=== PATIENT | male | born 1970 | race Caucasian/White ===

== ENCOUNTER 2017-12-23 09:47 | Outpatient (CLI) | payer OTHER, SELFPAY ==
[2017-12-23 11:15] LABS: Anion Gap 7.4 mmol/L (3-11); BUN 21 mg/dL (7-18); CO2 28.6 mmol/L (21.0-32.0); CREATININE 1.41 mg/dL (0.70-1.30); Calcium 8.8 mg/dL (8.5-10.1); Chloride 103 mmol/L (98-107); Cholesterol 202 mg/dL (50-200); Estimated GFR 54.11 (mL/min/1.73m2); Glucose 111 mg/dL (70-100); HDL Cholesterol 33 mg/dL (40-60); LDL CHOLESTEROL 139 mg/dL (<100); Potassium 4.2 mmol/L (3.5-5.1); Sodium 139 mmol/L (136-145); TSH (W/Ref FT4) 0.45 uIU/mL (0.358-3.74); Triglyceride 172 mg/dL (30-150)
[2017-12-23 11:32] LABS: Uric Acid 6.6 mg/dL (3.5-7.2)
== END 2017-12-23 09:48 ==
PROVIDERS: PCP Nurse Practitioner Family; Visit Provider Nurse Practitioner Family
DX: E78.5 Hyperlipidemia, unspecified (principal); E03.9 Hypothyroidism, unspecified; M10.9 Gout, unspecified; N18.3 Chronic kidney disease, stage 3 (moderate)
CPT/HCPCS: 36415; 80048; 80061; 83721; 84443; 84550

== ENCOUNTER 2018-01-15 12:14 | Outpatient (CLI) | payer OTHER, SELFPAY ==
[2018-01-15 13:49] LABS: Uric Acid 5.6 mg/dL (3.5-7.2)
== END 2018-01-15 12:15 ==
PROVIDERS: PCP Nurse Practitioner Family; Visit Provider Nurse Practitioner Family
DX: M10.9 Gout, unspecified (principal)
CPT/HCPCS: 36415; 84550

== ENCOUNTER 2018-09-20 12:33 | Outpatient (CLI) | payer OTHER, SELFPAY ==
[2018-09-20 13:03] LABS: HCT 47.4 % (40.0-50.0); HGB 16.1 g/dL (13.5-17.5)
[2018-09-20 14:08] LABS: TSH (W/Ref FT4) 0.63 uIU/mL (0.358-3.74)
[2018-09-21 16:45] LABS: PSA, Ultrasensitive 0.53 ng/mL (<= 2.5)
[2018-09-24 16:52] LABS: Testosterone, Free 21.1 ng/dL (4.26-16.4); Testosterone, Total 479 ng/dL (240-950)
== END 2018-09-20 12:53 ==
PROVIDERS: PCP Nurse Practitioner Family; Visit Provider Internal Medicine Endocrinology, Diabetes & Metabolism
DX: E29.1 Testicular hypofunction (principal); E06.5 Other chronic thyroiditis
CPT/HCPCS: 36415; 84153; 84402; 84403; 84443; 85014; 85018

== ENCOUNTER 2018-12-29 16:16 | Outpatient (REF) | payer OTHER, SELFPAY | END 2018-12-29 16:36 | LOC: LBN 16:16 | PROVIDERS: PCP Nurse Practitioner Family; Visit Provider Nurse Practitioner Family | DX: J02.9 Acute pharyngitis, unspecified (principal) | CPT/HCPCS: 87070 ==

== ENCOUNTER 2019-09-30 02:37 | Outpatient (CLI) | payer OTHER, SELFPAY ==
[2019-09-30 10:03] LABS: HCT 50.1 % (40.0-50.0); HGB 16.8 g/dL (13.5-17.5); Mean Corp. HGB Concentration 33.5 g/dL (32.0-36.0); Mean Corpuscular Hemoglobin 30.1 pg (27.0-33.0); Mean Corpuscular Volume 89.6 fL (80-95); Mean Platelet Volume 10.7 fL (8.0-11.0); Platelet Count 205 x1000/uL (130-400); RBC 5.59 m/cumm (4.50-6.00); RBC Distribution Width 14.1 % (11.8-14.1); White Blood Cell Count 8.52 k/cumm (4.4-10.8)
[2019-09-30 11:43] LABS: ALT 60 U/L (16-63); AST 29 U/L (15-37); Albumin 3.9 g/dL (3.4-5.0); Alkaline Phosphatase 89 U/L (46-116); Bilirubin, Direct 0.11 mg/dL (0.00-0.20); Bilirubin, Total 0.5 mg/dL (0.2-1.0); TSH (W/Ref FT4) 1.43 uIU/mL (0.36-3.74); Total Protein 6.9 g/dL (6.4-8.2)
[2019-10-03 10:53] LABS: PSA, Screening 0.4 ng/mL (0.0-2.5)
[2019-10-06 12:25] LABS: Testosterone, Total 731 ng/dL (240-950)
== END 2019-09-30 02:57 ==
PROVIDERS: PCP Nurse Practitioner Adult Health; Visit Provider Internal Medicine Endocrinology, Diabetes & Metabolism
DX: E29.1 Testicular hypofunction (principal); E03.9 Hypothyroidism, unspecified; E06.3 Autoimmune thyroiditis
CPT/HCPCS: 36415; 80076; 84153; 84402; 84403; 85027; 84443

== ENCOUNTER 2021-08-21 01:40 | Outpatient (CLI) | payer OTHER, SELFPAY ==
--- NOTE | 2021-08-21 07:45 | DI.RAD_ITS ---
Exam(s) XR ELBOW LT COMPLETE EXAM: XR ELBOW LT COMPLETE CLINICAL HISTORY: pain to ulna radius just distal to elbow,? BONY DEFORMITY OR LESION. TECHNIQUE: 2D digital imaging was performed. COMPARISON: No exams were available for comparison FINDINGS: 3 views There is no evidence of fracture or elbow joint effusion. There is no swelling of the olecranon burs a. Radial head and capitellum appear unremarkable. Bony excrescence noted at the level of the later al epicondyle. Correlation with clinical findings of possible epicondylitis recommended. IMPRESSION: DATA REPOSITORY: RADIATION DOSE DELIVERED:
== END 2021-08-21 02:00 ==
PROVIDERS: PCP Nurse Practitioner Adult Health; Visit Provider Nurse Practitioner Adult Health
DX: M79.632 Pain in left forearm (principal); M25.522 Pain in left elbow
CPT/HCPCS: 73080

== ENCOUNTER 2022-06-20 12:03 | Outpatient (CLI) | payer OTHER, SELFPAY ==
--- NOTE | 2022-06-20 11:30 | DI.RAD_ITS ---
Exam(s) XR CHEST 2V PA LATERAL EXAM: XR CHEST 2V PA LATERAL CLINICAL HISTORY: COUGH, R05.9, r/o PNA. TECHNIQUE: 2D digital imaging was performed. COMPARISON: No exams were available for comparison FINDINGS: 2 views: Heart size is normal. The mediastinum is not widened. There is a benign calcified granuloma in the right upper lobe. No confluent infiltrates nor pleural effusions. No pneumothorax. IMPRESSION: No acute pulmonary findings. DATA REPOSITORY: RADIATION DOSE DELIVERED:
--- OUTSIDE RECORDS SUMMARY | 2022-06-20 12:12 | XMS_ITS | Continuity of Care Document ---
:1970 Author Organization [facility] Address [address] [place] [address] Care Team Providers Name Role Phone Kitty Smith Primary Care Physician Encounter [facility] Date(s): 06/14/22 - 06/14/[address] [address] Discharge Disposition: Home or Self Care Attending Physician: Kitty Smith APRN Admitting Physician: Kitty Smith APRN Referring Physician: REAGAN FULTON Allergies, Adverse Reactions, Alerts No Known Medication Allergies Substance Reaction Severity Status clarithromycin Unknown Active Medications AAA - Misc Prescription 12 EA, 0 Refill(s) Start Date: 12/11/21 Status: Orderedallopurinol 300 mg oral tablet 90 tab, 0 Refill(s) Start Date: 12/11/21 Status: Orderedescitalopram 20 mg oral tablet 90 tab, 0 Refill(s) Start Date: 12/11/21 Status: Orderedlisinopril 20 mg oral tablet 90 tab, 0 Refill(s) Start Date: 12/11/21 Status: OrderedMisc Prescription Lexi-D 24 hour 1 daily, 0 Refill(s) Start Date: 12/09/21 Status: OrderedSynthroid 175 mcg (0.175 mg) oral tablet 90 tab, 0 Refill(s) Start Date: 12/11/21 Status: OrderedTestosterone Cypionate 200 mg/mL intramuscular solution 6 mL, 0 Refill(s) Start Date: 12/11/21 Status: OrderedVitamin D3 2000 intl units oral capsule See Instructions, Take by oral route Start Date: 12/09/21 Status: Ordered Problem List Condition Confirmation Course Effective Dates Status Health I nformant Status Anxiety disorder Confirmed 07/06/20 Active Chronic kidney Confirmed 07/06/20 Active disease stage 3 Essential Confirmed 07/06/20 Active hypertension Hyperlipidemia Confirmed 07/06/20 Active Impaired fasting Confirmed 07/06/20 Active glycemia Obstructive sleep Confirmed 07/04/20 Active apnea syndrome Pain in left arm Confirmed 07/06/20 Active Paresthesia Confirmed 07/06/20 Active Triggering of digit Confirmed 07/06/20 Active Results Laboratory List Name Date Comprehensive Metabolic Panel 06/14/22 Hemoglobin A1c 06/14/22 Lipid Panel 06/14/22 Uric Acid 06/14/22 Most recent to oldest [Reference Range]: 1 BUN [7-18 mg/dL] 15 mg/dL (06/14/22 11:20 AM) Cholesterol Total [50-200 mg/dL] 200 mg/dL (06/14/22 11:20 AM) LDL [0-130 mg/dL] 91 mg/dL (06/14/22 11:20 AM) Glucose Level [74-106 mg/dL] 121 mg/dL *HI* (06/14/22 11:20 AM) Potassium Level [3.5-5.1 mmol/L] 4.4 mmol/L (06/14/22 11:20 AM) HDL [40-60 mg/dL] 34 mg/dL *LOW* (06/14/22 11:20 AM) AST [15-37 unit/L] 29 unit/L (06/14/22 11:20 AM) ALT [16-63 unit/L] 57 unit/L (06/14/22 11:20 AM) Sodium Level [136-145 mmol/L] 137 mmol/L (06/14/22 11:20 AM) Triglycerides [0-150 mg/dL] 373 mg/dL *HI* (06/14/22 11:20 AM) Calcium Level [8.5-10.1 mg/dL] 9.3 mg/dL (06/14/22 11:20 AM) Albumin Level [3.4-5.0 g/dL] 4.0 g/dL (06/14/22 11:20 AM) Protein Total [6.4-8.2 g/dL] 7.4 g/dL (06/14/22 11:20 AM) Bilirubin Total [0.2-1.0 mg/dL] 1.0 mg/dL (06/14/22 11:20 AM) Uric Acid [3.5-7.2 mg/dL] 7.3 mg/dL *HI* (06/14/22 11:20 AM) Alk Phos [46-146 unit/L] 75 unit/L (06/14/22 11:20 AM) CO2 [21-32 mmol/L] 31 mmol/L (06/14/22 11:20 AM) eGFR Non-AA [>=60] 58 *LOW* (06/14/22 11:20 AM) eGFR AA [>=60] 58 *LOW* (06/14/22 11:20 AM) Hemoglobin A1c [4.0-6.0 %] 5.6 % (06/14/22 11:20 AM) Chloride Level [98-107 mmol/L] 99 mmol/L (06/14/22 11:20 AM) Creatinine Level [0.70-1.30 mg/dL] 1.46 mg/dL *HI* (06/14/22 11:20 AM) Social History Social History Type Response Tobacco Never tobacco user Tobacco U se:. Sex Male Patient Care team information PersonnelName: Kitty Smith APRN Address: Address: [facility] [address] [place] [id number] [place] [address]
== END 2022-06-20 12:23 ==
LOC: DI 12:11
PROVIDERS: PCP Nurse Practitioner Adult Health; Visit Provider Nurse Practitioner Family
DX: R05.9 Cough, unspecified (principal)
CPT/HCPCS: 71046

== ENCOUNTER 2023-01-12 11:26 | Outpatient (CLI) | payer OTHER, SELFPAY ==
[2023-01-12 11:32] LABS: ESR 4 mm/hr (0-20)
[2023-01-12 11:54] LABS: Hemoglobin A1C 5.6 % (<5.7)
[2023-01-12 12:08] LABS: Anion Gap 6.2 mmol/L (3-11); BUN 11 mg/dL (7-18); CO2 29.8 mmol/L (21.0-32.0); CREATININE 1.4 mg/dL (0.70-1.30); Calcium 9.2 mg/dL (8.5-10.1); Chloride 102 mmol/L (98-107); Estimated GFR 60.85 (mL/min/1.73m2); Folate 8.4 ng/mL (8.6-20.0); Glucose 136 mg/dL (74-106); Potassium 3.8 mmol/L (3.5-5.1); Sodium 138 mmol/L (136-145); TSH (W/Ref FT4) 3.45 uIU/mL (0.36-3.74); Vitamin B12 358 pg/mL (193-986)
[2023-01-13 13:52] LABS: Albumin 62.8 % (55.8-66.1); Albumin g/dL 4.3 g/dL (3.6-5.2); Total Protein 6.9 g/dL (6.3-8.2)
[2023-01-13 14:28] LABS: ANA Interpretation Negative (Negative)
== END 2023-01-12 11:27 | disposition home or self-care (01) ==
LOC: LBO 11:26
PROVIDERS: PCP Nurse Practitioner Adult Health; Visit Provider Nurse Practitioner Adult Health
DX: F41.9 Anxiety disorder, unspecified (principal); G62.9 Polyneuropathy, unspecified
CPT/HCPCS: 36415; 80048; 85652; 82607; 82746; 83036; 84165; 84443; 86038

== ENCOUNTER 2023-08-09 20:11 | Emergency (ER) | payer OTHER, SELFPAY ==
[2023-08-09] VITALS (16 sets, daily range): BP systolic 158–180; BP diastolic 65–113; PULSE 109–118; RESP 17–32; TEMP 37.3–38.2; O2SAT 93–97
--- NOTE | 2023-08-09 20:15 | RT.EKG_ITS ---
APPROVED REPORT Exam: Resting ECG Reason for Exam: chest pain Patient Location: E HR:115 bpm ECG Measurements Heart Rate 115 AXIS SD 136 P 59 QRSd 86 QRS -67 QT 289 T 73 QTc 399 Conclusion Sinus tachycardia...rate> 99 Left anterior fascicular block...axis(240,-40), init forces inf Narrow complex sinus tachycardia at a rate of 115. Left axis deviation. Intervals within normal vasquez its. T wave flattening in aVL. No prior for comparison. No acute injury pattern.
[2023-08-09 20:57] LABS: Abs Immature Grans 0.03 10^3/uL (0.0-0.06); Absolute Basophil Count 0.03 10^3/uL (0.0-0.2); Absolute Eosinophil Count 0.09 10^3/uL (0.0-0.7); Absolute Lymphocyte Count 0.54 10^3/uL (1.2-3.4); Absolute Monocyte Count 1.02 10^3/uL (0.1-0.8); Absolute Neutrophil Count 3.61 10^3/uL (1.2-6.7); Basophils % 0.6; Eosinophils % 1.7; HCT 47.1 % (40.0-50.0); HGB 15.8 g/dL (13.5-17.5); Immature Grans % 0.6; Lymphocytes % 10.2; MCH 30.3 pg (27.0-33.0); MCHC 33.5 % (32.0-36.0); MCV 90 fL (80-95); Monocytes % 19.2; Neutrophils % 67.7; Platelet Count 137 10^3/uL (130-400); RBC 5.21 10^6/uL (4.36-5.78); RDW 13.4 % (11.8-14.1); RDW-SD 44.8 fL; WBC 5.32 10^3/uL (4.4-10.8)
--- NOTE | 2023-08-09 21:00 | DI.RAD_ITS ---
Exam(s) XR CHEST 2V PA LATERAL EXAM: XR CHEST 2V PA LATERAL CLINICAL HISTORY: fever, cough TECHNIQUE: 2D digital imaging was performed. Two views. COMPARISON: CR XR CHEST 2V PA LATERAL from 06/20/2022 FINDINGS: Leads overlie the chest. Poor inspiratory effort on the lateral view. HEART: Normal size. Aorta: Not dilated. PULMONARY VASCULATURE: Normal. LUNGS: Clear. PLEURAL SPACE: No pleural effusion or pneumothorax. BONE:Unremarkable for age. Soft tissues: Unremarkable. IMPRESSION: No acute abnormality. DATA REPOSITORY: RADIATION DOSE DELIVERED:
--- NOTE | 2023-08-09 21:02 | W.ED.GENAD ---
Discharge Plan Disposition Patient Disposition: Home Condition: Stable Discharge Details Clinical Impression: Influenza A Primary Care Provider: Kitty Cordova ED Provider: Melania Garcia Home Meds and New Rx's Prescriptions: New prednisone 20 mg tablet 40 mg PO ONCE Qty: 9 0RF Continued cholecalciferol (vitamin D3) 125 mcg (5,000 unit) capsule 125 mcg PO .During winter months mecobalamin (vitamin B12) 1,000 mcg tablet,chewable 2,000 mcg PO DAILY testosterone cypionate 100 MG/1 ML oil 80 mg IM q wk Rx Instructions: [facility], Andrologist rx levothyroxine 175 MCG tablet 175 mcg PO DAILY Qty: 90 Rx Instructions: [facility] Administer in the morning on an empty stomach, at least 30-60 minutes before food. lisinopril 20 mg tablet See Rx Instructions .ROUTE .COMPLEX Qty: 90 3RF Dose Instruction: TAKE 1 TABLET DAILY FOR HIGH BLOOD PRESSURE Rx Instructions: TAKE 1 TABLET DAILY FOR HIGH BLOOD PRESSURE allopurinol 300 mg tablet See Rx Instructions .ROUTE .COMPLEX Qty: 90 3RF Dose Instruction: TAKE 1 TABLET DAILY Rx Instructions: TAKE 1 TABLET DAILY folic acid 1 mg tablet 1 mg PO DAILY Qty: 90 3RF escitalopram oxalate 20 mg tablet See Rx Instructions .ROUTE .COMPLEX Qty: 90 3RF Dose Instruction: TAKE 1 TABLET DAILY Rx Instructions: TAKE 1 TABLET DAILY Discharge Instructions Instructions: Influenza (DC) Additional Instructions: Supportive care, Tylenol 650 to 1 g every 6 hours Be cautious with taking Aleve as you are on lisinopril, you may take Aleve 1-2 times a day but do not exceed 3 days as it can affect your kidneys Use your inhaler, 2 puffs every 4-6 hours At least eight 8 ounce glasses of water daily Please do not return to work until you are feeling improved and fever free for at least 24 hours Take the prednisone as prescribed, you will need your next dose tomorrow, this will help with cough and breathing Please return earlier should you have new or worsening complaints Stand Alone Forms: Work Release Referrals: Kitty Cordova, AIDS NURSE [Primary Care Provider] - Discharge Data Discharge Date/Time-TO BE ENTERED AT DEPARTURE: 08/09/23 22:23 HPI General Date/Time Provider Initiated Documentation: 08/09/23 20:28. HPI Narrative: This 52-year-old male with history of peripheral neuropathy, CKD, hypothyroidism, gout presents with report of shortness of breath, fever, myalgias, with subsequent episode of syncope today. Patient states he was coughing after standing up and had a syncopal event. He states he had pain secondary to coughing. He has been sick for approximately 3 days. Numerous sick contacts at work reportedly. Had a brief several second loss of consciousness, denies any associated palpitations or shortness of breath at the time. Denies any history of tobacco use. Denies any calf pain or swelling, recent flights, surgeries, long drives. Denies any neck pain or current headache. Denies history of coagulopathy. Denies tobacco use, or history of hyperlipidemia or hypertension per patient. Related Data Home Medications Medication Instructions Recorded Confirmed testosterone cypionate 100 mg/mL 80 mg IM q wk 08/27/12 08/09/23 intramuscular oil levothyroxine 175 mcg tablet 175 mcg PO DAILY #90 tab-caps 12/31/17 08/09/23 cholecalciferol (vitamin D3) 125 125 mcg PO .During winter months 04/17/21 08/09/23 mcg (5,000 unit) capsule allopurinol 300 mg tablet See Rx Instructions .Route 06/16/22 08/09/23 .COMPLEX #90 tabs lisinopril 20 mg tablet See Rx Instructions .Route 06/16/22 08/09/23 .COMPLEX #90 tabs folic acid 1 mg tablet 1 mg PO DAILY #90 tabs 02/04/23 08/09/23 mecobalamin (vitamin B12) 1,000 2,000 mcg PO DAILY 04/24/23 08/09/23 mcg chewable tablet escitalopram oxalate 20 mg tablet See Rx Instructions .Route 04/27/23 08/09/23 .COMPLEX #90 tabs prednisone 20 mg tablet 40 mg (2 x 20 mg) PO ONCE #9 tabs 08/09/23 Previous Rx's Medication Instructions Recorded allopurinol 300 mg tablet See Rx Instructions .Route 06/16/22 .COMPLEX #90 tabs lisinopril 20 mg tablet See Rx Instructions .Route 06/16/22 .COMPLEX #90 tabs folic acid 1 mg tablet 1 mg PO DAILY #90 tabs 02/04/23 escitalopram oxalate 20 mg tablet See Rx Instructions .Route 04/27/23 .COMPLEX #90 tabs prednisone 20 mg tablet 40 mg (2 x 20 mg) PO ONCE #9 tabs 08/09/23 Allergies Allergy/AdvReac Type Severity Reaction Status Date / Time clarithromycin [From Biaxin] AdvReac Unknown Verified 04/24/23 15:27 General Stated Complaint: [id number] ROSSANA: 3 Course Vital Signs Vital signs: Vital Signs Temperature 38.2 C H 08/09/23 20:19 Pulse 111 H 08/09/23 20:19 Respiratory Rate 24 08/09/23 20:19 Blood Pressure 166/95 H 08/09/23 20:19 Pulse Oximetry 95 08/09/23 20:19 Temperature 38.2 C H 08/09/23 20:19 Temperature Source Temporal Artery Scan 08/09/23 20:19 Pulse 111 H 08/09/23 20:19 Respiratory Rate 24 08/09/23 20:19 Respiratory Effort Short of Breath 08/09/23 20:33 Blood Pressure 166/95 H 08/09/23 20:19 Blood Pressure Position Sitting 08/09/23 20:19 Pulse Oximetry 95 08/09/23 20:19 Oxygen Delivery Method Room Air 08/09/23 20:19 Oxygen Flow Rate 0 08/09/23 20:19 Pain Level 7 08/09/23 20:19 Comment w/coughing 08/09/23 20:19 Lab/Test Results Lab/Test Results: Laboratory Tests Range/Units 08/09/23 08/09/23 20:46 20:48 WBC (4.4-10.8) 10^3/uL 5.32 RBC (4.36-5.78) 10^6/uL 5.21 Hgb (13.5-17.5) g/dL 15.8 Hct (40.0-50.0) % 47.1 MCV (80-95) fL 90 MCH (27.0-33.0) pg 30.3 MCHC (32.0-36.0) % 33.5 RDW (11.8-14.1) % 13.4 Plt Count (130-400) 10^3/uL 137 MPV (8.0-11.0) fL 10.0 Immature Gran % 0.6 Neutrophils % 67.7 Lymphocytes % 10.2 Monocytes % 19.2 Eosinophils % 1.7 Basophils % 0.6 Nucleated RBC % (0.0-0.3) % 0.0 Absolute Neutrophils (1.2-6.7) 10^3/uL 3.61 Absolute Lymphocytes (1.2-3.4) 10^3/uL 0.54 L Absolute Monocytes (0.1-0.8) 10^3/uL 1.02 H Absolute Eosinophils (0.0-0.7) 10^3/uL 0.09 Absolute Basophils (0.0-0.2) 10^3/uL 0.03 Magnesium Cancelled Medical Decision Making This 52-year-old male presents with report of chest pain with coughing, mild shortness of breath, and syncopal event today EKG without significant dysrhythmia, sinus tachycardia noted, no hypoxia or respiratory distress, feels marked improvement after albuterol administration, steroids supplied her bronchospastic cough No cervical spine tenderness, GCS 15, pupils equal round reactive to light and accommodation, no Swelling or tenderness appreciated, no abdominal tenderness, rebound or guarding Diagnostic labs do not show significant acute abnormality, influenza A positive, likely the etiology of patient's complaints Troponin was negative Low suspicion for cardiac etiology of patient's complaints, he has reproducible generalized chest wall tenderness that started after copious amounts of coughing, started on prednisone, given inhaler for home, febrile upon arrival likely the cause of patient's tachycardia, clinically low suspicion for PE Feels comfortable discharge home, work note supplied As patient is 72 hours post onset of symptoms, does not meet criteria for Tamiflu administration Return precautions reviewed and patient expressed understanding Quality:SDOH Health Related Social Needs: No Data to Display PFSH All Active Problems (Updated 08/09/23 @ 22:48 by KEVYN Brandon) Influenza A (Acute) Folate deficiency (Acute ~01/2023) Peripheral neuropathy (Chronic ~10/2022) NCS at [facility] 10/2022 Idiopathic progressive neuropathy b/l feet Polyneuropathy, unspecified Chronic kidney disease (CKD), stage III (moderate) (Chronic) Most likely 2/2 congenital solitary kidney and HTN (and gout?); NL UA, microalbumin, and renal US Acquired hypothyroidism (Chronic 05/18/07) DX AT TIME OF HYPOGONADISM [place]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 Endocrinology [facility] [place] [place] Nazia Starkey manages IFG (impaired fasting glucose) (Chronic 11/10/16) 5.5% A1C 2018 Obstructive sleep apnea syndrome (Chronic 12/09/11) CPAP; [facility] 08/2020 [facility]- repeat home sleep study done to requalify for treatment. moderate geremias associated with significant nocturnal hypoxemia. 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 Hypertensive disorder, systemic arterial Atherosclerosis of coronary artery Family history of stroke Alcoholism Hyperlipidemia Sister Disorder of thyroid gland Brother Hypertensive disorder, systemic arterial Gout Alcoholism Depression Hyperlipidemia Brother Hypertensive disorder, systemic arterial Hyperlipidemia Grandmother Diabetes Other History of kidney disease Hypothyroidism Social History Smoking/Tobacco Use Status: Never Smoking risk assessment performed?: Yes Alcohol Intake: current Alcohol Intake frequency: holidays/special occasions only Details: Pt declined to answer. Drug use: Never Substance use type: does not use Details: Pt declined to answer. 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 Pets and animals: Yes Pets and animals: dog(s) Sexually active: Yes Do you think of yourself as: decline to answer Current gender identity: male and decline to answer What is your relationship status?: refused to answer How often do you talk on the phone with friends or family?: decline to answer How often do you get together with friends or relatives?: decline to answer How often do you attend mandaen or hindu services?: decline to answer Do you belong to any clubs or organized social groups?: decline to answer Panel score (0-1 are the most socially isolated patients): 0 What type of physical activity do you participate in: decline to answer Duration: decline to answer Frequency: decline to answer Vandana/Druze: Evangelical Special vandana needs: Yes (does not want meds,vaccines,etc that contain aborted babies) Details: pt aware this is not something pcpoffice/healthcare can monitor Seatbelt use: always Drive intox or ride w/intox clamp truck driver: No Water heater temp set <120 deg: Yes Working smoke detector in home: Yes Fire extinguisher in home: Yes Carbon monox detector in home: Yes Do you feel safe at home: Yes Do you feel safe in your relationship?: Yes Additional Social history: pt states for his own self, he would like to have it written under special needs that he does not want any medicines, vaccines etc that contain aborted babies. he is aware this is not something the pcp office/healthcare can monitor/screen for him or be responsible for. He is aware he will need to do his own research and agrees. He just asks that this be noted under the special vandana needs for his own comfort. PCP is aware and aware he asked for this to be noted under social history/special vandana needs PAWSS Have you Been Recently Intoxicated or Drunk Within the Last 30 days?: No Have you Ever Experienced Previous Episodes of Alcohol Withdrawal?: No Have you ever Experienced Withdrawal Seizures?: No Have you ever Experienced Delirium Tremens(DT)s?: No Have you ever undergone Alcohol Rehabilitation Treatment (i.e, inpt ot outpatient treatment programs)?: No Have you ever Experienced Blackouts?: No Have you ever Combined Alcohol with other Downers within the last 90 days?: No Have you ever Combined Alcohol with any other Substance of Abuse during the last 90 days?: No Positive Blood Alcohol level on Presentation? [PCS.BAL]: No Evidence of Increased Autonomic Activity (i.e. HR>120, tremor, sweating, agitation, nausea)?: No Result: 0
[2023-08-09 21:13] LABS: ALT 52 U/L (16-63); AST 36 U/L (15-37); Albumin 3.8 g/dL (3.4-5.0); Alkaline Phosphatase 74 U/L (46-116); BUN 15 mg/dL (7-18); Bilirubin, Total 0.5 mg/dL (0.2-1.0); CREATININE 1.6 mg/dL (0.70-1.30); Calcium 8.9 mg/dL (8.5-10.1); Chloride 100 mmol/L (98-107); Estimated GFR 51.84 (mL/min/1.73m2); Glucose 131 mg/dL (74-106); Potassium 4.1 mmol/L (3.5-5.1); Sodium 139 mmol/L (136-145); Total Protein 6.9 g/dL (6.4-8.2); Troponin I < 50 ng/L (< or =60)
[2023-08-09 21:15] LABS: COVID-19 PCR Negative (Negative); Influenza A PCR Positive (Negative); Influenza B PCR Negative (Negative); RSV PCR Negative (Negative)
[2023-08-09 21:17] LABS: Source Nasopharynx
[2023-08-09] MEDS: predniSONE 20 MG TAB 40 MG PO (21:32)
[2023-08-09] MEDS: Albuterol HFA 8 GM 60 PUFF INH IH (21:32)
[2023-08-09] MEDS: Normal Saline 1,000 ML 1000 ML IV (21:32)
[2023-08-09] MEDS: ACETAMINOPHEN 1,000 MG/100 ML BTL 400 MG IVPB (21:38)
[2023-08-09 22:10] LABS: Bilirubin Negative (Negative); Blood Small (Negative); Clarity Clear (Clear); Glucose Negative (Negative); Ketones Negative (Negative); Leukocyte Esterase Negative (Negative); Nitrite Negative (Negative); Urobilinogen 0.2 mg/dL (Up to 0.2); pH 8.5 (5-8)
[2023-08-09 22:21] LABS: Bacteria Negative HPF (Negative); C & S Indicated? No; Casts Negative LPF (Negative); Crystals Negative HPF (Negative); Epithelial Cells Rare HPF (Negative); Mucus Negative (Negative); WBC 0-2 HPF (0-5)
--- NOTE | 2023-08-09 22:44 | DI.VRAD_ITS ---
PROCEDURE INFORMATION: Exam: XR Chest Exam date and time: 08/09/2023 9:40 PM Age: 52 years old Clinical indication: Cough and fever; Patient HX: Fever, cough TECHNIQUE: Imaging protocol: Radiologic exam of the chest. Views: 2 views. COMPARISON: CR XR CHEST 2V PA LATERAL 06/20/2022 11:50 AM FINDINGS: Lungs: Low lung volumes. Pulmonary vasculature grossly normal. Granulomatous calcification in the right upper lobe. No gross pulmonary infiltrates or edema pattern. Minimal linear atelectasis in the peripheral lung bases. Pleural spaces: No pleural effusion. No pneumothorax. Heart/Mediastinum: Heart size normal. No tracheal/mediastinal shift. Bones/joints: No acute osseous abnormalities are identified. Mild thoracic spondylosis. IMPRESSION: Low lung volumes with mild peripheral linear atelectasis in the lung bases. No gross pulmonary infiltrates. Dictated and Authenticated by: Pankaj Pascal MD. Ordering:JARAD Velázquez MD
== END 2023-08-09 22:23 | disposition home or self-care (01) ==
PROVIDERS: Emergency Provider Physician Assistant; PCP Nurse Practitioner Adult Health
DX: J10.1 Influenza due to other identified influenza virus with other respiratory manifestations (principal); R07.89 Other chest pain; R55 Syncope and collapse; I12.9 Hypertensive chronic kidney disease with stage 1 through stage 4 chronic kidney disease, or unspecified chronic kidney disease; N18.30 Chronic kidney disease, stage 3 unspecified; E78.5 Hyperlipidemia, unspecified; I44.4 Left anterior fascicular block; Z11.52 Encounter for screening for COVID-19
CPT/HCPCS: 80053; 87637; 93005; 96361; 96374; 99284; 71046; 81003; 81015; 83735; 84484; 85025; 93010; J0131; J7512

== ENCOUNTER 2024-02-16 02:12 | Outpatient (CLI) | payer OTHER, SELFPAY ==
--- NOTE | 2024-02-16 12:41 | DI.RAD_ITS ---
Exam(s) XR LUMBAR SPINE COMPLETE EXAM: XR LUMBAR SPINE COMPLETE CLINICAL HISTORY: Lumbago,pain lt hip, m25.552. TECHNIQUE: 2D digital imaging was performed. Five views. COMPARISON: No exams were available for comparison FINDINGS: BONES: No fracture or destructive lesion. Vertebral body heights are maintained. No facet hypertro phy identified . Endplate osteophytes, largest anteriorly at L1-2.. DISKS: Mild narrowing of the L4-5 disc space. The remaining intervertebral disc spaces are maintai santos. ALIGNMENT: Lumbar spinal alignment is within normal limits. SOFT TISSUE: Normal. IMPRESSION: Mild degenerative changes, greatest at L4-5. DATA REPOSITORY: RADIATION DOSE DELIVERED:
== END 2024-02-16 02:32 ==
LOC: DI 02:13
PROVIDERS: PCP Nurse Practitioner Adult Health; Visit Provider Emergency Medicine
DX: M25.552 Pain in left hip (principal)
CPT/HCPCS: 72110

== ENCOUNTER 2024-03-09 12:21 | Outpatient (CLI) | payer OTHER, SELFPAY ==
[2024-03-09 13:16] LABS: Hemoglobin A1C 5.5 % (<5.7)
[2024-03-09 13:28] LABS: ALT 40 U/L (16-63); AST 27 U/L (15-37); Albumin 3.9 g/dL (3.4-5.0); Alkaline Phosphatase 76 U/L (46-116); Anion Gap 6.4 mmol/L (3-11); BUN 16 mg/dL (7-18); Bilirubin, Total 1.06 mg/dL (0.2-1.0); CO2 28.6 mmol/L (21.0-32.0); CREATININE 1.4 mg/dL (0.70-1.30); Calcium 9.5 mg/dL (8.5-10.1); Chloride 105 mmol/L (98-107); Estimated GFR 60.47 (mL/min/1.73m2); Glucose 128 mg/dL (74-106); Potassium 4.2 mmol/L (3.5-5.1); Sodium 140 mmol/L (136-145); Total Protein 7.3 g/dL (6.4-8.2); Uric Acid 6.2 mg/dL (3.5-7.2)
[2024-03-09 14:09] LABS: Calculated LDL 116 mg/dL (<100); Cholesterol 192 mg/dL (<200); HDL Cholesterol 36 mg/dL (40-60); Triglyceride 200 mg/dL (<150)
[2024-03-09 14:10] LABS: Folate > 20.0 ng/mL (8.6-20.0)
== END 2024-03-09 12:22 | disposition home or self-care (01) ==
LOC: LBO 12:26
PROVIDERS: PCP Nurse Practitioner Adult Health; Visit Provider Nurse Practitioner Adult Health
DX: I10 Essential (primary) hypertension (principal); E78.5 Hyperlipidemia, unspecified; E78.1 Pure hyperglyceridemia; R73.01 Impaired fasting glucose; E53.8 Deficiency of other specified B group vitamins; N18.30 Chronic kidney disease, stage 3 unspecified; M10.9 Gout, unspecified; G62.9 Polyneuropathy, unspecified; G47.33 Obstructive sleep apnea (adult) (pediatric); E03.9 Hypothyroidism, unspecified; F41.9 Anxiety disorder, unspecified
CPT/HCPCS: 36415; 80053; 80061; 82746; 83036; 84550

== ENCOUNTER 2024-07-12 14:25 | Outpatient (CLI) | payer OTHER, SELFPAY ==
[2024-07-13 11:28] LABS: HIV-1/2 Ag & Ab Screen Negative (Negative)
[2024-07-13 11:50] LABS: Hepatitis A Antibody IgM Negative (Negative); Hepatitis B Core Antibody Negative (Negative); Hepatitis B surface Ag Negative (Negative); Hepatitis C Ab w Rflx HCV PCR Negative (Negative)
== END 2024-07-12 14:26 | disposition home or self-care (01) ==
LOC: LBO 14:34
PROVIDERS: PCP Nurse Practitioner Adult Health; Visit Provider Nurse Practitioner
DX: Z20.9 Contact with and (suspected) exposure to unspecified communicable disease (principal); R19.7 Diarrhea, unspecified; Z20.89 Contact with and (suspected) exposure to other communicable diseases
CPT/HCPCS: 36415; 86704; 86709; 86803; 87340; 87389

== ENCOUNTER 2024-12-05 16:46 | Outpatient (CLI) | payer OTHER, SELFPAY ==
--- NOTE | 2024-12-05 10:15 | DI.RAD_ITS ---
Exam(s) XR SHOULDER LT COMPLETE 2+V EXAM: XR SHOULDER LT COMPLETE 2+V CLINICAL HISTORY: assess for arthritis, pain in left shoulder M25.512. TECHNIQUE: 2D digital imaging was performed. Three views. COMPARISON: No exams were available for comparison FINDINGS: BONES: No acute fracture is present. No bony destructive lesion is seen. JOINTS: No dislocation present. Spurring at the AC joint and inferior glenoid. SOFT TISSUE: Calcification adjacent to the greater tuberosity consistent with calcific tendinosis. IMPRESSION: Mild degenerative changes and calcific tendinosis. DATA REPOSITORY: RADIATION DOSE DELIVERED:
== END 2024-12-05 17:06 ==
PROVIDERS: PCP Nurse Practitioner Adult Health; Visit Provider Nurse Practitioner Adult Health
DX: M25.512 Pain in left shoulder (principal)
CPT/HCPCS: 73030

== ENCOUNTER 2025-01-11 11:28 | Outpatient (CLI) | payer OTHER, SELFPAY ==
--- NOTE | 2025-01-11 08:00 | DI.US_ITS ---
Exam(s) US LOWER EXTREMITY VENOUS RT EXAM: US LOWER EXTREMITY VENOUS RT CLINICAL HISTORY: R/O DVT, PITTING EDEMA R60.9 TECHNIQUE: Right lower extremity venous ultrasound performed using grayscale, color-flow, and spectral Doppler analysis. COMPARISON: No exams were available for comparison FINDINGS: The right common femoral, femoral and popliteal veins demonstrate normal compressibility, augmentation, and color Doppler. The posterior tibial and peroneal veins are patent. The saphenofemoral junction is unremarkable. There is no evidence of a Huang cyst. The soft tissues are unremarkable. IMPRESSION: No evidence of a right lower extremity DVT. DATA REPOSITORY:
--- NOTE | 2025-01-11 13:10 | DI.RAD_ITS ---
Exam(s) XR ANKLE RT COMPLETE EXAM: XR ANKLE RT COMPLETE CLINICAL HISTORY: R/O fracture, RIGHT ANKLE PAIN, M25.571. TECHNIQUE: 2D digital imaging was performed of the right ankle. Three images were obtained. AP, lateral and oblique views were obtained. COMPARISON: No exams were available for comparison FINDINGS: BONES: No acute fracture is present. No bony destructive lesion is seen. There is an enthesophyte at the posterior calcaneus. There is a small plantar calcaneal spur. JOINTS: The ankle mortise is normally aligned. SOFT TISSUE: Normal. IMPRESSION: There is no acute fracture or dislocation. DATA REPOSITORY: RADIATION DOSE DELIVERED:
== END 2025-01-11 11:48 ==
PROVIDERS: PCP Nurse Practitioner Adult Health; Visit Provider Family Medicine
DX: M25.571 Pain in right ankle and joints of right foot
CPT/HCPCS: 73610; 93971

== ENCOUNTER 2025-01-11 15:40 | Outpatient (CLI) | payer OTHER, SELFPAY ==
[2025-01-12 09:37] LABS: Lyme Ab w Rflx to Lyme Confirm Negative (Negative)
[2025-01-13 21:20] LABS: B. miyamotoi PCR Negative (Negative); Babesia divergens/MO-1 Negative (Negative); Ehrlichia muris eauclairensis Negative (Negative)
== END 2025-01-11 15:41 | disposition home or self-care (01) ==
LOC: LBO 15:45
PROVIDERS: PCP Nurse Practitioner Adult Health; Visit Provider Family Medicine
DX: R60.9 Edema, unspecified (principal)
CPT/HCPCS: 36415; 87798; 86618